=== PATIENT | female | born 1945 | race Caucasian/White ===

== ENCOUNTER → 2016-08-01 | Outpatient (CLI) | payer MEDICARE, BC | LOC: WI 11:28 | PROVIDERS: ATTEND Internal Medicine | DX: Z12.31 Encounter for screening mammogram for malignant neoplasm of breast (principal); M81.0 Age-related osteoporosis without current pathological fracture | CPT/HCPCS: 77063; 77080; G0202; 77067 ==

== ENCOUNTER 2017-09-30 15:30 | Emergency (ER) | payer MEDICARE, BC ==
[2017-09-30] MEDS ORDERED: ACETAMINOPHEN 325 MG TABLET PO ONE (16:25)
--- NOTE | 2017-09-30 16:36 | RADIOLOGY REPORT (SQ) ---
EXAM DESCRIPTION: HAND RIGHT 3 VIEWS COMPLETED DATE/TIME: 09/30/2017 4:22 pm REASON FOR STUDY: fall pain COMPARISON: None. EXAM PARAMETERS: NUMBER OF VIEWS: Three views. TECHNIQUE: AP, lateral and oblique radiographic images acquired of the right hand. LIMITATIONS: None. FINDINGS: MINERALIZATION: Osteopenia. BONES: Mildly angulated comminuted fracture is seen of the distal radius noting intra-articular exten vivienne. Background of [id number] degenerative changes. JOINTS: No effusions. SOFT TISSUES: Soft tissue swelling is seen about the wrist. OTHER: No other significant finding. IMPRESSION: Mildly angulated comminuted fracture of the distal radius noting intra-articular extensi on. TECHNICAL DOCUMENTATION: JOB ID: [id number] [employer]- All Rights Reserved Reading location - IP/workstation name: [email or web address]
--- NOTE | 2017-09-30 16:37 | RADIOLOGY REPORT (SQ) ---
EXAM DESCRIPTION: WRIST RIGHT 3 VIEWS COMPLETED DATE/TIME: 09/30/2017 4:22 pm REASON FOR STUDY: fall pain COMPARISON: None. NUMBER OF VIEWS: Three views. TECHNIQUE: AP, lateral, and oblique radiographic images acquired of the right wrist. LIMITATIONS: None. FINDINGS: MINERALIZATION: Osteopenia. BONES: Mildly angulated comminuted fracture of the distal radius noting intra-articular extension. SOFT TISSUES: Soft tissue swelling overlies the injury site. OTHER: Moderate degenerative changes of the thumb carpal metacarpal joint. IMPRESSION: Mildly angulated comminuted fracture of the distal radius noting intra-articular extensi on. TECHNICAL DOCUMENTATION: JOB ID: [id number] [employer]- All Rights Reserved Reading location - IP/workstation name: [email or web address]
--- NOTE | 2017-09-30 16:52 | ER Document Report ---
ED Hand/Wrist Injury - General Chief Complaint: Wrist Injury Stated Complaint: RIGHT HAND INJURY Time Seen by Provider: 09/30/17 16:02 Mode of Arrival: Ambulatory Information source: Patient Notes: Patient is a 71-year-old female who presents to the ER today for right wrist pain after falling and extending her arm to catch herself, landing on an outstretched right hand. Patient admits to swelling and pain specifically going to the thumb. She has full range of motion of her hand and fingers but it just hurts per patient. She denies any numbness or tingling. She denies loss of consciousness, hitting her head or pain anywhere else. TRAVEL OUTSIDE OF THE [place] IN LAST 30 DAYS: No - Related Data Allergies/Adverse Reactions: Sulfa (Sulfonamide Antibiotics) Allergy (Mild, Verified 06/25/11 11:56) rash Past Medical History - General Information source: Patient - Social History Smoking Status: Never Smoker Chew tobacco use (# tins/day): No Frequency of alcohol use: None Drug Abuse: None Family History: Reviewed & Not Pertinent Patient has suicidal ideation: No Patient has homicidal ideation: No - Past Medical History Cardiac Medical History: Denies: Hx Heart Attack, Hx Hypertension Pulmonary Medical History: Denies: Hx Asthma Neurological Medical History: Denies: Hx Cerebrovascular Accident, Hx Seizures Renal/ Medical History: Denies: Hx Peritoneal Dialysis GI Medical History: Denies: Hx Hepatitis, Hx Hiatal Hernia, Hx Ulcer Infectious Medical History: Denies: Hx Hepatitis Past Surgical History: Denies: Hx Mastectomy, Hx Open Heart Surgery, Hx Pacemaker - Immunizations Hx Diphtheria, Pertussis, Tetanus Vaccination: Yes Review of Systems - Review of Systems Constitutional: No symptoms reported EENT: No symptoms reported Cardiovascular: No symptoms reported Respiratory: No symptoms reported Gastrointestinal: No symptoms reported Genitourinary: No symptoms reported Female Genitourinary: No symptoms reported Musculoskeletal: See HPI Skin: No symptoms reported Hematologic/Lymphatic: No symptoms reported Neurological/Psychological: No symptoms reported Physical Exam - Vital signs Vitals: Temp Pulse Resp BP Pulse Ox 98.5 F 58 L 20 141/75 H 97 09/30/17 15:39 09/30/17 15:39 09/30/17 15:39 09/30/17 15:39 09/30/17 15:39 - Notes Notes: PHYSICAL EXAMINATION: GENERAL: Well-appearing and in no acute distress. HEAD: Atraumatic, normocephalic. EYES: Pupils equal round and reactive to light, extraocular movements intact, sclera anicteric, conjunctiva are normal. NECK: Normal range of motion, supple without lymphadenopathy LUNGS: CTAB and equal. No wheezes rales or rhonchi. HEART: Regular rate and rhythm without murmurs BACK: no vertebral tenderness, normal ROM GI/: no CVA tenderness EXTREMITIES: Decreased range of motion of the right wrist secondary to pain, tender over the right distal radius with edema, no pitting edema. No cyanosis. NEUROLOGICAL: Cranial nerves grossly intact. Normal sensory/motor exams. PSYCH: Normal mood, normal affect. SKIN: Warm, Dry, normal turgor, edema noted to the distal radius, see extremities above Course - Re-evaluation Re-evalutation: 09/30/17 17:14 Patient has a comminuted fracture of the distal radius on x-ray today, she has good range of motion of all fingers and normal sensation. Patient placed in a sugar tong splint and given orthopedic information to follow-up with. She had heard of Dr. Hassan and wants his information. - Vital Signs Vital signs: Temp Pulse Resp BP Pulse Ox 98 F 62 18 135/72 H 98 09/30/17 17:45 09/30/17 17:45 09/30/17 17:45 09/30/17 17:45 09/30/17 17:45 Procedures - Immobilization Right Wrist Time completed: 22:00 Pre-Proc Neuro Vasc Exam: Normal Immobilizer type: Sugar tong Performed by: PCT Post-Proc Neuro Vasc Exam: Normal Alignment checked and good: Yes Discharge - Discharge Clinical Impression: Distal radius fracture, right Qualifiers: Encounter type: initial encounter Fracture type: closed Fracture morphology: unspecified fracture morphology Qualified Code(s): S52.501A - Unspecified fracture of the lower end of right radius, initial encounter for closed fracture Condition: Stable Disposition: HOME, SELF-CARE Additional Instructions: Return immediately for any new or worsening symptoms. Follow up with orthopedic doctor primary care provider, call tomorrow to make followup appointment. Prescriptions: Oxycodone HCl 5 mg PO Q4 PRN #20 tablet PRN Reason: Referrals: SHAREE BANDA MD [Primary Care Provider] - Follow up as needed MYA HASSAN MD [ACTIVE STAFF] - Follow up as needed
[2017-09-30 17:58] VITALS: BP 135/72
== END 2017-09-30 17:45 | disposition home or self-care (01) ==
LOC: ER 15:30
DX: S52.591A Other fractures of lower end of right radius, initial encounter for closed fracture (principal); M25.531 Pain in right wrist; W01.0XXA Fall on same level from slipping, tripping and stumbling without subsequent striking against object, initial encounter; Z88.2 Allergy status to sulfonamides
CPT/HCPCS: 99283; 73130; 73110; 29125; A9270

== ENCOUNTER 2018-09-07 17:06 | Emergency (ER) | payer OTHER, MEDICARE, BC ==
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
[2018-09-07 20:48] VITALS: BP 155/68
--- NOTE | 2018-09-07 22:38 | EKG REPORT ---
SEVERITY:- ABNORMAL ECG - SINUS RHYTHM LAD, CONSIDER LAFB OR INFERIOR INFARCT LOW VOLTAGE IN FRONTAL LEADS BORDERLINE T ABNORMALITIES, ANTERIOR LEADS : Confirmed by: Shankar Leahy 07-Sep-2018 22:37:30
== END 2018-09-07 20:48 | disposition home or self-care (01) ==
LOC: ER 17:06
DX: R07.89 Other chest pain (principal); M54.5 Low back pain; V89.2XXA Person injured in unspecified motor-vehicle accident, traffic, initial encounter
CPT/HCPCS: 71046; 93005; 93010; 99284